=== PATIENT | male | born 2005 | race Caucasian/White ===

== ENCOUNTER → 2024-07-19 | Outpatient (CLI) | payer BC, SELFPAY ==
[2024-07-19 09:28] LABS: Collection Type, Urine Clean Catch; Squamous Epithelial Cell,Urine 0 /hpf (0-5)
[2024-07-19 09:55] LABS: Basophils # (Auto) 0.1 Thou/mm3 (0.0-0.2); Basophils % (Auto) 1 % (0-2.5); Eosinophils # (Auto) 0.3 Thou/mm3 (0.0-0.5); Eosinophils % (Auto) 3 % (0-10); Hematocrit 42.2 % (41.0-53.0); Hemoglobin 13.8 g/dL (13.5-16.0); Immature Granulocytes % (Auto) 1 % (0-0); Immature Granulocytes Auto 0.07 Thou/mm3 (0.00-0.00); Lymphocytes # (Auto) 3.1 Thou/mm3 (1.0-4.8); Lymphocytes % (Auto) 29 % (10-50); Mean Corpuscular HGB Conc 32.7 g/dl (31.0-37.0); Mean Corpuscular Hemoglobin 26.2 pg (25.0-35.0); Mean Corpuscular Volume 80 fL (80-100); Monocytes # (Auto) 1.1 Thou/mm3 (0.0-0.8); Monocytes % (Auto) 11 % (0-12); Neutrophils % (Auto) 56 % (37-80); Nucleated Red Blood Cell % 0 /100 WBC (0); Platelet Count 382 Thou/mm3 (140-440); RDW Standard Deviation 49.5 fL (35.1-43.9); Red Blood Count 5.26 Miln/mm3 (4.50-5.90); White Blood Count 10.6 Thou/mm3 (4.5-11.0)
[2024-07-19 10:05] LABS: Bacteria,Urine Rare; Bilirubin,Urine Negative (Negative); Blood,Urine Negative (Negative); Clarity,Urine Clear (Clear/Hazy); Color,Urine Lt-Yellow (Lt Yel-Yel); Culture Indicated,Urine Not Indicated; Glucose, Urine Negative (Negative); Ketones,Urine Negative (Negative); Leukocyte Esterase,Urine Negative (Negative); Nitrite,Urine Negative (Negative); Protein,Urine Negative (Neg - Trace); RBC,Urine 1 /hpf (0-3); Specific Gravity,Urine 1.011 (1.001-1.035); Urobilinogen,Urine Negative mg/dL (0.0-1.0); WBC,Urine 1 /hpf (0-5)
[2024-07-19 10:47] LABS: Alanine Aminotransferase 61 U/L (10-49); Albumin, Serum 4.5 gm/dL (3.5-5.0); Alkaline Phosphatase 62 U/L (46-116); Anion Gap 6 (7-16); Aspartate Amino Transferase 56 U/L (0-34); BUN/Creatinine Ratio 15 Ratio (12-20); Bilirubin,Total 0.4 mg/dL (0.3-1.2); Blood Urea Nitrogen 16 mg/dL (9-23); Calcium 9.7 mg/dL (8.3-10.6); Calcium (Corrected) 9.7 mg/dL (8.5-10.1); Carbon Dioxide 24.8 mMol/L (20.0-31.0); Cardiac Risk Estimate 14.7 RATIO (4.0-6.7); Chloride 106 mMol/L (98-107); Cholesterol 294 mg/dL (132-200); Creatinine (Component) 1.1 mg/dL (0.6-1.3); Globulin 2.2 gm/dL (2.3-3.5); Glucose 92 mg/dL (74-106); HDL Cholesterol 20 mg/dL (40-60); LDL Cholesterol,Calculated 253 mg/dL (0-130); Osmolality,Calculated 275 (275-295); Potassium 4.7 mMol/L (3.4-5.1); Sodium 137 mMol/L (136-145); Thyroid Stimulating Hormone 0.74 uIU/mL (0.55-4.78); Total Protein 6.7 gm/dL (5.7-8.2); Triglycerides 105 mg/dL (30-150); eGFR > 60 See Note
[2024-07-26 06:27] LABS: Testosterone,Total* 5870 ng/dL (250-1100)
== END | disposition home or self-care (01) ==
LOC: COPL 08:49
PROVIDERS: PCP Family Medicine; Referring Provider Nurse Practitioner Family; Visit Provider Nurse Practitioner Family
DX: Z00.00 Encounter for general adult medical examination without abnormal findings (principal); E29.1 Testicular hypofunction
CPT/HCPCS: 36415; 80053; 80061; 81001; 84403; 84443; 85025

== ENCOUNTER 2024-07-20 16:32 | Emergency (ER) | payer BC, SELFPAY ==
[2024-07-20 16:35] VITALS: BP 156/81; PULSE 76; RESP 16; TEMP 36.6; O2SAT 99; BMI 30.9
--- NOTE | 2024-07-20 17:29 | XR_ITS ---
Examination: PA lateral chest 2 views TECHNIQUE: Upright PA lateral chest 2 views Exam date and time: July 20, 2024 1734 hours INDICATIONS: Chest pain beginning one week ago. FINDINGS: Normal heart size Lungs are clear. The osseous structures are intact IMPRESSION: No active disease
--- NOTE | 2024-07-20 17:29 | PD.EDRME ---
Rapid Medical Screening Exam RME Arrival date/time: 07/20/24 16:32 18-year-old male presents to the emergency department complaint of chest pain which Chief Complaint: Chest Pain Time Seen by Provider: 07/20/24 17:11 Vital signs: Vital Signs Temperature 97.9 F 07/20/24 16:35 Pulse Rate 76 07/20/24 16:35 Respiratory Rate 16 07/20/24 16:35 Blood Pressure 156/81 H 07/20/24 16:35 Pulse Oximetry (%) 99 07/20/24 16:35 Oxygen Delivery Method Room Air 07/20/24 16:35
[2024-07-20 17:59] LABS: Basophils # (Auto) 0.1 Thou/mm3 (0.0-0.2); Basophils % (Auto) 1 % (0-2.5); Eosinophils # (Auto) 0.3 Thou/mm3 (0.0-0.5); Eosinophils % (Auto) 3 % (0-10); Hematocrit 42.9 % (41.0-53.0); Hemoglobin 13.8 g/dL (13.5-16.0); Immature Granulocytes % (Auto) 1 % (0-0); Immature Granulocytes Auto 0.09 Thou/mm3 (0.00-0.00); Lymphocytes # (Auto) 3.8 Thou/mm3 (1.0-4.8); Lymphocytes % (Auto) 28 % (10-50); Mean Corpuscular HGB Conc 32.2 g/dl (31.0-37.0); Mean Corpuscular Hemoglobin 25.9 pg (25.0-35.0); Mean Corpuscular Volume 81 fL (80-100); Monocytes # (Auto) 1.5 Thou/mm3 (0.0-0.8); Monocytes % (Auto) 11 % (0-12); Neutrophils # (Auto) 7.6 Thou/mm3 (1.8-7.7); Neutrophils % (Auto) 57 % (37-80); Nucleated Red Blood Cell % 0 /100 WBC (0); Platelet Count 373 Thou/mm3 (140-440); RDW Standard Deviation 50.3 fL (35.1-43.9); Red Blood Count 5.32 Miln/mm3 (4.50-5.90); White Blood Count 13.4 Thou/mm3 (4.5-11.0)
[2024-07-20 18:19] LABS: Alanine Aminotransferase 54 U/L (10-49); Albumin, Serum 4.6 gm/dL (3.5-5.0); Albumin/Globulin Ratio 1.8 (1.2-2.2); Alkaline Phosphatase 59 U/L (46-116); Anion Gap 5 (7-16); Aspartate Amino Transferase 50 U/L (0-34); BUN/Creatinine Ratio 16 Ratio (12-20); Bilirubin,Total 0.4 mg/dL (0.3-1.2); Blood Urea Nitrogen 19 mg/dL (9-23); Calcium 9.9 mg/dL (8.3-10.6); Calcium (Corrected) 9.9 mg/dL (8.5-10.1); Carbon Dioxide 27.4 mMol/L (20.0-31.0); Chloride 106 mMol/L (98-107); Creatinine (Component) 1.2 mg/dL (0.6-1.3); Estimated Creatinine Clearance 122.1 mL/min (>60); Globulin 2.5 gm/dL (2.3-3.5); Glucose 93 mg/dL (74-106); Osmolality,Calculated 277 (275-295); Potassium 4.1 mMol/L (3.4-5.1); Sodium 138 mMol/L (136-145); Total Protein 7.1 gm/dL (5.7-8.2); Troponin I < 0.020 ng/mL (0.0-0.045); eGFR > 60 See Note
[2024-07-20 20:07] LABS: Amphetamine/Methamp Scrn,U Negative (Negative); Barbiturate Screen,Urine Negative (Negative); Benzodiazepines Screen,Urine Negative (Negative); Benzoylecgonine Screen, Ur Negative (Negative); Fentanyl Screen,Urine Negative (Negative); Opiate Screen,Urine Negative (Negative); THC Screen,Urine Negative (Negative)
--- NOTE | 2024-07-20 20:44 | EDNOTE_ITS ---
ED General RME/HPI General Chief complaint: Chest Pain Stated complaint: CHEST PAIN X1 WK ON & OFF MORE TODAY W/L ARM PAIN Time Seen by Provider: 07/20/24 17:11 Arrival date/time: 07/20/24 16:32 CC: Chest pain HPI for the last week the patient has had left anterior chest pain that is been persistent nature progressive increase in severity worse when he takes a deep breath coughs or laughs denies any fever chills shortness of breath or difficulty breathing no prior history of similar events no OTC medicines taken currently the pain is a 2-3 on a 10 scale. RME / HPI RME / HPI narrative: 07/20/24 16:32 18-year-old male presents to the emergency department complaint of chest pain which Related Data Home Medications ?Medication ?Instructions ?Recorded ?Confirmed No Known Home Medications 12/31/19 12/31/19 Allergies Allergy/AdvReac Type Severity Reaction Status Date / Time No Known Allergies Allergy Verified 04/17/24 21:17 Review of Systems Review of Systems Narrative Review of Systems: GEN: No fever, no chills, no weight loss EYES: No discharge, no visual changes, no pain HEENT: No ear pain, no congestion, no sore throat PULM: No shortness of breath, no cough, no congestion CV: No chest pain, no dyspnea on exertion, no palpitations GI: No nausea, no vomiting, no diarrhea, no pain, no constipation : No frequency, no urgency, no dysuria MUSC/SKEL: No joint pain, no back pain SKIN: No rash PSYCH: No hallucinations, no depression HEME/LYMPH: No easy bleeding or bruising tendencies NEURO: No weakness, no headache Past Medical History Social History SMOKING STATUS: Current every day smoker ED Exam Narrative Physical exam: [General: Not in any acute distress Head normocephalic HEENT: Within acceptable limits Neck is supple nontender Chest equal chest rise, left anterior chest at the costal sternal junction there is exquisite tenderness to palpation reproducible site-specific in nature no right sided tenderness with palpation. Respiratory: Clear to auscultation no wheezes crackles or rubs CV: Rate rhythm is regular no murmurs rubs or clicks Abdomen is distended secondary to body habitus soft nontender no masses positive bowel sounds all 4 quadrants Back: No CVA tenderness no spinous process tenderness from cervical spine thoracic and lumbar spine Skin: Intact no petechiae rash induration ulceration or crepitus Extremities: Moving all extremity against resistance cap refill less than 2 seconds neurosensory intact Neuro: Awake alert oriented x3 Glascow coma 15 no focal deficits] Course Quality Measures none Orders Category Date Time Status EKG (ED ONLY) *Do not use* NOW Care 07/20/24 16:43 Completed EKG (ED Only) Stat Exams 07/20/24 16:43 Ordered XR chest 2V Stat Exams 07/20/24 17:29 Completed CBC Stat Lab 07/20/24 17:40 Completed Comprehensive Metabolic Panel Stat Lab 07/20/24 17:40 Completed Drug Screen,Urine Stat Lab 07/20/24 19:31 Completed Troponin I Stat Lab 07/20/24 17:40 Completed Vital Signs Vital signs: Vital Signs Temperature 97.9 F 07/20/24 16:35 Pulse Rate 76 07/20/24 16:35 Respiratory Rate 16 07/20/24 16:35 Blood Pressure 156/81 H 07/20/24 16:35 Pulse Oximetry (%) 99 07/20/24 16:35 Oxygen Delivery Method Room Air 07/20/24 16:35 MDM Patient data External records reviewed:: [facility] previous records Clinical information provided by:: patient Social determinants that could affect healthcare access:: none Patient has the following chronic illnesses:: None How is presenting disease/condition affected by chronic disease/condition?: u neffected by Evaluation data The following diagnostics were reviewed and interpreted by me:: lab results and radiology exam(s) Lab and/or radiology exams considered but not ordered:: EKG performed at 1651 shows ventricular before WI interval 110 QRS of 98 QTc of 373 is normal sinus rhythm Short WI interval 0 Troponin is negative Chest x-ray is negative Other laboratories is unremarkable for any acute finding. Interpretation Summary: Costochondritis Medications Medications considered but not ordered:: None Medication administrations:: None Consultations Consultation(s) initiated? (list below): No Diagnosis Differential Diagnosis ED Complaint MDM: Pneumonia costochondritis pleuritic chest wall pain Most likely diagnosis given after review of the tests above:: Costochondritis Admission Indicated Admission indicated?: not indicated Explain why admission is indicated or not indicated:: Stable for outpatient follow-up Admission Request Was there a request for admission?: No Disposition Plan Disposition Plan: Discharge Discharge Attestation Discharge Attestation: The patient and all family members were given an opportunity to ask questions and understood the discharge instructions. Discharge instructions specifically effects, indications for sooner follow up or return to the emergency department, and the expected course of current diagnosis. Patient condition: Stable Medical Decision Making Differential Diagnosis Differential Diagnosis: Pneumonia costochondritis pleuritic chest wall pain Lab Data 07/20/24 17:40 07/20/24 17:40 Labs: Lab Results 07/20/24 07/20/24 Range/Units 17:40 19:31 WBC 13.4 H (4.5-11.0) Thou/mm3 RBC 5.32 (4.50-5.90) Miln/mm3 Hgb 13.8 (13.5-16.0) g/dL Hct 42.9 (41.0-53.0) % MCV 81 (80-100) fL MCH 25.9 (25.0-35.0) pg MCHC 32.2 (31.0-37.0) g/dl RDW Std Deviation 50.3 H (35.1-43.9) fL Plt Count 373 (140-440) Thou/mm3 Neut % (Auto) 57 (37-80) % Lymph % (Auto) 28 (10-50) % Kay % (Auto) 11 (0-12) % Eos % (Auto) 3 (0-10) % Baso % (Auto) 1 (0-2.5) % Neut # (Auto) 7.6 (1.8-7.7) Thou/mm3 Lymph # (Auto) 3.8 (1.0-4.8) Thou/mm3 Kay # (Auto) 1.5 H (0.0-0.8) Thou/mm3 Eos # (Auto) 0.3 (0.0-0.5) Thou/mm3 Baso # (Auto) 0.1 (0.0-0.2) Thou/mm3 Immature Gran # (Auto) 0.09 H (0.00-0.00) Thou/mm3 Absolute Nucleated RBC 0.00 (0.00-0.00) Thou/mm3 Immature Gran % 1 H (0-0) % Nucleated RBC % 0 (0) /100 WBC Sodium 138 (136-145) mMol/L Potassium 4.1 D (3.4-5.1) mMol/L Chloride 106 (98-107) mMol/L Carbon Dioxide 27.4 (20.0-31.0) mMol/L Anion Gap 5 L (7-16) BUN 19 (9-23) mg/dL Creatinine 1.2 (0.6-1.3) mg/dL Estim Creat Clear Calc 122.1 (>60) mL/min eGFR > 60 (60 - ) See Note BUN/Creatinine Ratio 16 (12-20) Ratio Glucose 93 (74-106) mg/dL Calculated Osmolality 277 (275-295) Calcium 9.9 (8.3-10.6) mg/dL Corrected Calcium 9.9 (8.5-10.1) mg/dL Total Bilirubin 0.4 (0.3-1.2) mg/dL AST 50 H (0-34) U/L ALT 54 H (10-49) U/L Alkaline Phosphatase 59 (46-116) U/L Troponin I < 0.020 (0.0-0.045) ng/mL Total Protein 7.1 (5.7-8.2) gm/dL Albumin 4.6 (3.5-5.0) gm/dL Globulin 2.5 (2.3-3.5) gm/dL Albumin/Globulin Ratio 1.8 (1.2-2.2) Urine Opiates Screen Negative (Negative) Urine Fentanyl Screen Negative (Negative) Ur Barbiturates Screen Negative (Negative) U Amphetamin/Meth Scrn Negative (Negative) U Benzodiazepines Scrn Negative (Negative) U Cocaine Metab Screen Negative (Negative) U Marijuana (THC) Screen Negative (Negative) Discharge Plan Plan Patient Disposition: HOME (Self Care) Patient condition on transfer: Stable Prescriptions/Referrals Prescriptions/Med Rec: No Action No Known Home Medications Referrals: Tessie Tinajero NP [Primary Care Provider] - In 1 week Problem List Clinical Impression: Costochondritis Patient/Caregiver Discharge Instructions Other Activity Instructions:: Ibuprofen and Tylenol for pain follow-up with primary care provider Education Materials: Costochondritis Print Language: Mohawk Stand Alone Forms: [employer]ita Award Info., Work/School Release, Patient Portal Info Letter Attestation Attestation The patient was seen by the midlevel practitioner. I, the co-signing physician, was present during the entire ER visit. While I did not physically examine the patient, I was available for consultation as needed.
[2024-07-20 21:02] VITALS: BP 137/65; PULSE 78; RESP 18; TEMP 36.6; O2SAT 99
== END 2024-07-20 21:02 | disposition home or self-care (01) ==
PROVIDERS: Nurse Practitioner Primary Care; Emergency Provider Emergency Medicine; PCP Nurse Practitioner Family
DX: M94.0 Chondrocostal junction syndrome [Tietze] (principal); R94.31 Abnormal electrocardiogram [ECG] [EKG]
CPT/HCPCS: 36415; 71046; 80053; 80307; 84484; 85025; 93005; 99283

== ENCOUNTER 2024-11-14 15:46 | Emergency (ER) | payer BC, SELFPAY ==
[2024-11-14 15:48] VITALS: BMI 29.1
[2024-11-14 16:23] VITALS: BP 121/74; PULSE 82; RESP 18; TEMP 36.6; O2SAT 95
--- NOTE | 2024-11-14 16:35 | PD.EDRME ---
Rapid Medical Screening Exam E Arrival date/time: 11/14/24 15:46 19-year-old male with a history of depression was brought in by his dad after he was found with a loaded gun in his mouth preparing to pull the trigger Chief Complaint: Suicidal Time Seen by Provider: 11/14/24 15:54 Vital signs: Vital Signs Temperature 97.9 F 11/14/24 16:23 Pulse Rate 82 11/14/24 16:23 Respiratory Rate 18 11/14/24 16:23 Blood Pressure 121/74 11/14/24 16:23 Pulse Oximetry (%) 95 11/14/24 16:23 Oxygen Delivery Method Room Air 11/14/24 16:23
[2024-11-14 17:54] LABS: Alcohol, Blood Medical < 10.0 mg/dL (0-10.0)
[2024-11-14 17:56] LABS: Amphetamine/Methamp Scrn,U Negative (Negative); Barbiturate Screen,Urine Negative (Negative); Benzodiazepines Screen,Urine Negative (Negative); Benzoylecgonine Screen, Ur Negative (Negative); Fentanyl Screen,Urine Negative (Negative); Opiate Screen,Urine Negative (Negative); THC Screen,Urine Negative (Negative)
--- NOTE | 2024-11-14 19:05 | PC.NURSE ---
Took over care as 1:1 sitter for patient in conference room from day shift rafael cannon. New set of vitals obtained, patient taken to bathroom and placed in hospital gown. Patient is cooperative and follows commands accordingly. Items documented and patient placed in hospital gown. Items placed in locker #2. Security (Bina) to wand patient. Q15 observation/documentation initiated for my shift at this time.Father at bedside, Will cont. to stand by as 1:1 sitter. CN aware.
--- NOTE | 2024-11-14 19:15 | EDNOTE_ITS ---
ED Psych RME/HPI General Chief Complaint: Suicidal Stated Complaint: SI but no attempt today Time Seen by Provider: 11/14/24 15:54 Arrival date/time: 11/14/24 15:46 RME / HPI RME / HPI Narrative: 11/14/24 15:46 19-year-old male with a history of depression was brought in by his dad after he was found with a loaded gun in his mouth preparing to pull the trigger DR GARCIA MAIN ED EVALUATION: 19 yo male patient brought in by father for suicidal ideation. Per father patient was found with loaded gun. Related Data Home Medications ?Medication ?Instructions ?Recorded ?Confirmed No Known Home Medications 12/31/19 04/01/24 Allergies Allergy/AdvReac Type Severity Reaction Status Date / Time No Known Allergies Allergy Verified 04/17/24 21:17 Course Orders Category Date Time Status 1799 Psychiatric Hold NOW Care 11/14/24 18:30 Ordered Alcohol, Blood Medical Stat Lab 11/14/24 16:57 Completed Drug Screen,Urine Stat Lab 11/14/24 17:32 Completed Vital Signs Vital signs: Vital Signs Temperature 97.9 F 11/14/24 16:23 Pulse Rate 82 11/14/24 16:23 Respiratory Rate 18 11/14/24 16:23 Blood Pressure 121/74 11/14/24 16:23 Pulse Oximetry (%) 95 11/14/24 16:23 Oxygen Delivery Method Room Air 11/14/24 16:23 Discharge Plan Prescriptions/Referrals Prescriptions/Med Rec: No Action No Known Home Medications Patient/Caregiver Discharge Instructions Print Language: Citizen Of [place]
[2024-11-14 19:29] VITALS: BP 144/90; PULSE 82; RESP 18; TEMP 36.6; O2SAT 99
--- NOTE | 2024-11-14 22:22 | PC.NURSE ---
Patient was given a blanket, 2 pillows, and cup of coffee, all upon request. Patient is cooperative and behaves accordingly. Continuing to sit 1:1 with patient. Patient sleeping at this time.
--- NOTE | 2024-11-14 23:00 | PD.EDADDENDU ---
Emergency Room Addendum <Luzlowell Arnold - Last Filed: 11/15/24 05:27> Addendum Narrative: 2300: Care assumed from Dr. Erickson. Past medical, surgical, social and family history reviewed. Vitals and home medications reviewed. Results and treatment plan discussed. I will assume the care of the patient at this time and will follow the patient, pending 1799 hold. Please refer to the emergency department record for history and examination from initial visit. OBSERVATION NOTE: The patient was placed in ED observation care at 11/15/24 at 2300 hours. The patient was placed in ED observation care because of pending crisis evaluation. The patients past medical history, social history, and family history were reviewed. The plan of care will include serial examinations. Patient resting at this time. Patient has not needed any medications at this time. Patient is medically clear for crisis evaluation. 0600: Care signed out to the next oncoming provider. Past medical, surgical, social and family history reviewed. Vitals and home medications reviewed. Results and treatment plan discussed. They will assume the care of the patient at this time and will follow the patient, pending crisis evaluation. <Kasandra Mayer MD - Last Filed: 11/15/24 05:51> Addendum Narrative: 2300: Care assumed from Dr. Erickson. Past medical, surgical, social and family history reviewed. Vitals and home medications reviewed. Results and treatment plan discussed. I will assume the care of the patient at this time and will follow the patient, pending 1799 hold. Please refer to the emergency department record for history and examination from initial visit. Patient resting at this time. Patient has not needed any medications at this time.
--- NOTE | 2024-11-15 08:12 | PC.SS ---
Addendum entered by GONZALEZ Musa 11/15/24 13:07: Late entry: [employer] food production worker - Carissa Espinal informed content writer that patient would be cleared on safety plan with connection with psychiatrist appointment this week and connection to [facility] for mental health services follow up. Original Note: [employer] Operator contacted [employer] crisis team as the patient has been medically cleared for a mental health evaluation. [employer] informs they will send someone out to come evaluate the patient.
--- NOTE | 2024-11-15 08:14 | PC.NURSE ---
father here to see patient
--- NOTE | 2024-11-15 08:17 | PD.EDADDENDU ---
Emergency Room Addendum <Yaquelin Trinidad - Last Filed: 11/15/24 11:45> Addendum Narrative: 0600: Care assumed from Dr. Mayer, the previous shift emergency physician. Past medical, surgical, social and family history reviewed. Vitals and home medications reviewed. I will assume the care of the patient at this time, pending mental health evaluation. Please refer to the emergency department record for history and examination from initial visit.? Patient 19-year-old who is suicidal evidently had a loaded gun. There can have T come and evaluate this patient <Lane Cottrell MD - Last Filed: 11/15/24 11:45> Addendum Narrative: 0600: Care assumed from Dr. Mayer, the previous shift emergency physician. Past medical, surgical, social and family history reviewed. Vitals and home medications reviewed. I will assume the care of the patient at this time, pending mental health evaluation. Please refer to the emergency department record for history and examination from initial visit.? Patient 19-year-old who is suicidal evidently had a loaded gun. There can have Egdar come and evaluate this patient Patient has history of bipolar and have a safety plan and patient is cleared to go home there advised to follow-up with mental health as advised patient's been calm and no problems this morning..
[2024-11-15 09:03] VITALS: BP 135/76; PULSE 70; TEMP 36.5; O2SAT 99
--- NOTE | 2024-11-15 10:24 | PC.NURSE ---
PT AAOX4 HE WAS ABLE TO ANSWER QUESTIONS, HE STATES THAT HE IS STILL HAVING THOUGHTS OF SI WHEN HIS HER AND A SPECIFIC WAY BUT DID NOT SAY HOW. HE SAID THAT HE HAS HAD TWO ATTEMPTS ONE PRIOR WITH ALCOHOL AND THIS TIME WITH THOUGHTS OF SHOOTING HE WAS CLOSE BUT MY DISRUPTED HIM. HE STATES HIS FEEL THAT HIS FEELINGS ARE ALL OVER THE PLACE UP AND DOWN FROM ANGER TO SAD. HE STATES THAT HE HAS HISTORY OF BIPOLAR AND THAT HIS BIOLOGICAL MOTHER HAD BIPOLAR, HE WAS ADOPTED AND DOES NOT KNOW MUCH ABOUT BIOLOGICAL SIDE. HE DID STATE THAT WHEN HE TRIED TO OVERDOSE PRIOR WITH ALCOHOL HIS FATHER TOLD HIM YOUR YOUNG YOUR LIVER WILL METABOLIZE IT.
[2024-11-15 11:00] VITALS: BP 136/78; PULSE 72; RESP 16; TEMP 36.5; O2SAT 100
== END 2024-11-15 12:23 | disposition home or self-care (01) ==
PROVIDERS: Physician Assistant; Emergency Provider Emergency Medicine
DX: R45.851 Suicidal ideations (principal); F31.9 Bipolar disorder, unspecified
CPT/HCPCS: 36415; 80307; 80320; 96127; 99284; G0480

== ENCOUNTER → 2025-02-17 | Outpatient (CLI) | payer BC, SELFPAY ==
[2025-02-17 11:31] LABS: Basophils # (Auto) 0.1 Thou/mm3 (0.0-0.2); Basophils % (Auto) 1 % (0-2.5); Eosinophils # (Auto) 0.2 Thou/mm3 (0.0-0.5); Eosinophils % (Auto) 2 % (0-10); Hematocrit 45.9 % (41.0-53.0); Hemoglobin 15.9 g/dL (13.5-16.0); Immature Granulocytes % (Auto) 1 % (0-0); Immature Granulocytes Auto 0.05 Thou/mm3 (0.00-0.00); Lymphocytes % (Auto) 20 % (10-50); Mean Corpuscular HGB Conc 34.6 g/dl (31.0-37.0); Mean Corpuscular Hemoglobin 28.3 pg (25.0-35.0); Mean Corpuscular Volume 82 fL (80-100); Monocytes # (Auto) 1.1 Thou/mm3 (0.0-0.8); Monocytes % (Auto) 10 % (0-12); Neutrophils % (Auto) 67 % (37-80); Nucleated Red Blood Cell % 0 /100 WBC (0); Platelet Count 398 Thou/mm3 (140-440); RDW Standard Deviation 43.6 fL (35.1-43.9); Red Blood Count 5.62 Miln/mm3 (4.50-5.90); White Blood Count 10.4 Thou/mm3 (3.8-10.6)
[2025-02-17 11:57] LABS: Alanine Aminotransferase 38 U/L (10-49); Albumin, Serum 4.5 gm/dL (3.5-5.0); Alkaline Phosphatase 69 U/L (46-116); Anion Gap 9 (7-16); Aspartate Amino Transferase 41 U/L (0-34); BUN/Creatinine Ratio 14 Ratio (12-20); Bilirubin,Total 0.3 mg/dL (0.3-1.2); Blood Urea Nitrogen 17 mg/dL (9-23); Calcium 9.3 mg/dL (8.3-10.6); Calcium (Corrected) 9.3 mg/dL (8.5-10.1); Carbon Dioxide 24.7 mMol/L (20.0-31.0); Cardiac Risk Estimate 13.8 RATIO (4.0-6.7); Chloride 106 mMol/L (98-107); Cholesterol 234 mg/dL (132-200); Creatinine (Component) 1.2 mg/dL (0.6-1.3); Globulin 2.2 gm/dL (2.3-3.5); Glucose 95 mg/dL (74-106); HDL Cholesterol 17 mg/dL (40-60); LDL Cholesterol,Calculated 193 mg/dL (0-130); Osmolality,Calculated 280 (275-295); Potassium 4.5 mMol/L (3.4-5.1); Sodium 140 mMol/L (136-145); Total Protein 6.7 gm/dL (5.7-8.2); Triglycerides 122 mg/dL (30-150); eGFR > 60 See Note
== END | disposition home or self-care (01) ==
LOC: COPL 10:46
PROVIDERS: PCP Family Medicine; Referring Provider Physician Assistant; Visit Provider Physician Assistant
DX: L70.0 Acne vulgaris (principal)
CPT/HCPCS: 36415; 80053; 80061; 85025

== ENCOUNTER → 2025-02-23 | Outpatient (CLI) | payer BC, SELFPAY ==
[2025-02-23 10:38] LABS: Basophils # (Auto) 0.1 Thou/mm3 (0.0-0.2); Basophils % (Auto) 1 % (0-2.5); Eosinophils # (Auto) 0.2 Thou/mm3 (0.0-0.5); Eosinophils % (Auto) 2 % (0-10); Hematocrit 45.4 % (41.0-53.0); Hemoglobin 15.3 g/dL (13.5-16.0); Immature Granulocytes % (Auto) 1 % (0-0); Immature Granulocytes Auto 0.05 Thou/mm3 (0.00-0.00); Lymphocytes # (Auto) 2.3 Thou/mm3 (1.0-4.8); Lymphocytes % (Auto) 22 % (10-50); Mean Corpuscular HGB Conc 33.7 g/dl (31.0-37.0); Mean Corpuscular Volume 83 fL (80-100); Monocytes % (Auto) 10 % (0-12); Neutrophils # (Auto) 6.9 Thou/mm3 (1.8-7.7); Neutrophils % (Auto) 66 % (37-80); Nucleated Red Blood Cell % 0 /100 WBC (0); Platelet Count 394 Thou/mm3 (140-440); RDW Standard Deviation 43.8 fL (35.1-43.9); Red Blood Count 5.46 Miln/mm3 (4.50-5.90); White Blood Count 10.5 Thou/mm3 (3.8-10.6)
[2025-02-23 10:42] LABS: Collection Type, Urine Clean Catch; Squamous Epithelial Cell,Urine 0 /hpf (0-5); WBC,Urine 0 /hpf (0-5)
[2025-02-23 10:50] LABS: Glucose Estimated Average 97 mg/dL (80-131)
[2025-02-23 11:47] LABS: Bilirubin,Urine Negative (Negative); Blood,Urine Negative (Negative); Clarity,Urine Clear (Clear/Hazy); Color,Urine Lt-Yellow (Lt Yel-Yel); Culture Indicated,Urine Not Indicated; Glucose, Urine Negative (Negative); Ketones,Urine Negative (Negative); Leukocyte Esterase,Urine Negative (Negative); Nitrite,Urine Negative (Negative); Protein,Urine Trace (Neg - Trace); RBC,Urine 3 /hpf (0-3); Specific Gravity,Urine 1.014 (1.001-1.035); Urobilinogen,Urine Negative mg/dL (0.0-1.0)
[2025-02-23 12:02] LABS: Alanine Aminotransferase 39 U/L (10-49); Albumin, Serum 4.7 gm/dL (3.5-5.0); Albumin/Globulin Ratio 2.5 (1.2-2.2); Alkaline Phosphatase 65 U/L (46-116); Anion Gap 9 (7-16); Aspartate Amino Transferase 49 U/L (0-34); BUN/Creatinine Ratio 10 Ratio (12-20); Bilirubin,Total 0.6 mg/dL (0.3-1.2); Blood Urea Nitrogen 12 mg/dL (9-23); Calcium 9.9 mg/dL (8.3-10.6); Calcium (Corrected) 9.9 mg/dL (8.5-10.1); Carbon Dioxide 24.8 mMol/L (20.0-31.0); Cardiac Risk Estimate 12.3 RATIO (4.0-6.7); Chloride 102 mMol/L (98-107); Cholesterol 221 mg/dL (132-200); Creatinine (Component) 1.2 mg/dL (0.6-1.3); Globulin 1.9 gm/dL (2.3-3.5); Glucose 88 mg/dL (74-106); HDL Cholesterol 18 mg/dL (40-60); LDL Cholesterol,Calculated 183 mg/dL (0-130); Osmolality,Calculated 270 (275-295); Potassium 4.8 mMol/L (3.4-5.1); Sodium 136 mMol/L (136-145); Thyroid Stimulating Hormone 0.84 uIU/mL (0.55-4.78); Total Protein 6.6 gm/dL (5.7-8.2); Triglycerides 102 mg/dL (30-150); eGFR > 60 See Note
[2025-03-06 06:45] LABS: Estrogen, Total, Serum* 514 pg/mL (< OR = 404); Testosterone, Total, Dialysis 1880 ng/dL (250-1100)
== END | disposition home or self-care (01) ==
LOC: COPL 09:53
PROVIDERS: PCP Family Medicine; Referring Provider Physician Assistant; Visit Provider Physician Assistant
DX: E78.2 Mixed hyperlipidemia (principal)
CPT/HCPCS: 36415; 80053; 80061; 81001; 82672; 83036; 84402; 84403; 84443; 85025

== ENCOUNTER → 2025-03-29 | Outpatient (CLI) | payer BC, SELFPAY ==
[2025-03-29 09:32] LABS: Basophils # (Auto) 0.1 Thou/mm3 (0.0-0.2); Basophils % (Auto) 1 % (0-2.5); Eosinophils # (Auto) 0.2 Thou/mm3 (0.0-0.5); Eosinophils % (Auto) 2 % (0-10); Hematocrit 46.1 % (41.0-53.0); Hemoglobin 15.4 g/dL (13.5-16.0); Immature Granulocytes Auto 0.07 Thou/mm3 (0.00-0.00); Lymphocytes # (Auto) 2.5 Thou/mm3 (1.0-4.8); Lymphocytes % (Auto) 22 % (10-50); Mean Corpuscular HGB Conc 33.4 g/dl (31.0-37.0); Mean Corpuscular Hemoglobin 28.1 pg (25.0-35.0); Mean Corpuscular Volume 84 fL (80-100); Monocytes # (Auto) 1.1 Thou/mm3 (0.0-0.8); Monocytes % (Auto) 10 % (0-12); Neutrophils # (Auto) 7.6 Thou/mm3 (1.8-7.7); Neutrophils % (Auto) 66 % (37-80); Nucleated Red Blood Cell # 0.00 Thou/mm3 (0.00-0.00); Nucleated Red Blood Cell % 0 /100 WBC (0); Platelet Count 409 Thou/mm3 (140-440); RDW Standard Deviation 45.8 fL (35.1-43.9); Red Blood Count 5.49 Miln/mm3 (4.50-5.90); White Blood Count 11.5 Thou/mm3 (3.8-10.6)
[2025-03-29 09:58] LABS: Alanine Aminotransferase 40 U/L (10-49); Albumin, Serum 4.7 gm/dL (3.5-5.0); Albumin/Globulin Ratio 1.9 (1.2-2.2); Alkaline Phosphatase 55 U/L (46-116); Anion Gap 10 (7-16); Aspartate Amino Transferase 55 U/L (0-34); BUN/Creatinine Ratio 9 Ratio (12-20); Bilirubin,Total 0.6 mg/dL (0.3-1.2); Blood Urea Nitrogen 12 mg/dL (9-23); Calcium 9.4 mg/dL (8.3-10.6); Calcium (Corrected) 9.4 mg/dL (8.5-10.1); Carbon Dioxide 24.2 mMol/L (20.0-31.0); Cardiac Risk Estimate 12.8 RATIO (4.0-6.7); Chloride 104 mMol/L (98-107); Cholesterol 255 mg/dL (132-200); Creatinine (Component) 1.3 mg/dL (0.6-1.3); Globulin 2.5 gm/dL (2.3-3.5); Glucose 90 mg/dL (74-106); HDL Cholesterol 20 mg/dL (40-60); LDL Cholesterol,Calculated 217 mg/dL (0-130); Osmolality,Calculated 275 (275-295); Potassium 4.7 mMol/L (3.4-5.1); Sodium 138 mMol/L (136-145); Total Protein 7.2 gm/dL (5.7-8.2); Triglycerides 90 mg/dL (30-150); eGFR > 60 See Note
== END | disposition home or self-care (01) ==
LOC: COPL 08:12
PROVIDERS: PCP Family Medicine; Referring Provider Physician Assistant; Visit Provider Physician Assistant
DX: L70.0 Acne vulgaris (principal)
CPT/HCPCS: 36415; 80053; 80061; 85025

== ENCOUNTER → 2025-05-01 | Outpatient (CLI) | payer BC, SELFPAY ==
[2025-05-01 10:37] LABS: Basophils # (Auto) 0.1 Thou/mm3 (0.0-0.2); Basophils % (Auto) 0 % (0-2.5); Eosinophils # (Auto) 0.1 Thou/mm3 (0.0-0.5); Eosinophils % (Auto) 1 % (0-10); Hematocrit 46.8 % (41.0-53.0); Hemoglobin 15.6 g/dL (13.5-16.0); Immature Granulocytes Auto 0.10 Thou/mm3 (0.00-0.00); Lymphocytes # (Auto) 2.8 Thou/mm3 (1.0-4.8); Lymphocytes % (Auto) 20 % (10-50); Mean Corpuscular HGB Conc 33.3 g/dl (31.0-37.0); Mean Corpuscular Hemoglobin 27.9 pg (25.0-35.0); Mean Corpuscular Volume 84 fL (80-100); Monocytes # (Auto) 1.4 Thou/mm3 (0.0-0.8); Monocytes % (Auto) 10 % (0-12); Neutrophils # (Auto) 9.3 Thou/mm3 (1.8-7.7); Neutrophils % (Auto) 68 % (37-80); Nucleated Red Blood Cell # 0.00 Thou/mm3 (0.00-0.00); Nucleated Red Blood Cell % 0 /100 WBC (0); Platelet Count 331 Thou/mm3 (140-440); RDW Standard Deviation 48.7 fL (35.1-43.9); Red Blood Count 5.59 Miln/mm3 (4.50-5.90); White Blood Count 13.8 Thou/mm3 (3.8-10.6)
[2025-05-01 11:11] LABS: Alanine Aminotransferase 54 U/L (10-49); Albumin, Serum 4.1 gm/dL (3.5-5.0); Albumin/Globulin Ratio 2.3 (1.2-2.2); Alkaline Phosphatase 53 U/L (46-116); Anion Gap 12 (7-16); Aspartate Amino Transferase 43 U/L (0-34); BUN/Creatinine Ratio 15 Ratio (12-20); Bilirubin,Total 0.5 mg/dL (0.3-1.2); Blood Urea Nitrogen 18 mg/dL (9-23); Calcium 10.1 mg/dL (8.3-10.6); Calcium (Corrected) 10.1 mg/dL (8.5-10.1); Carbon Dioxide 23.3 mMol/L (20.0-31.0); Cardiac Risk Estimate 9.6 RATIO (4.0-6.7); Chloride 106 mMol/L (98-107); Cholesterol 191 mg/dL (132-200); Creatinine (Component) 1.2 mg/dL (0.6-1.3); Globulin 1.8 gm/dL (2.3-3.5); Glucose 94 mg/dL (74-106); HDL Cholesterol 20 mg/dL (40-60); LDL Cholesterol,Calculated 154 mg/dL (0-130); Osmolality,Calculated 283 (275-295); Potassium 4.4 mMol/L (3.4-5.1); Sodium 141 mMol/L (136-145); Total Protein 5.9 gm/dL (5.7-8.2); Triglycerides 83 mg/dL (30-150); eGFR > 60 See Note
== END | disposition home or self-care (01) ==
PROVIDERS: Referring Provider Physician Assistant; Visit Provider Physician Assistant
DX: L70.0 Acne vulgaris (principal)
CPT/HCPCS: 36415; 80053; 80061; 85025

== ENCOUNTER 2025-05-05 09:38 | Emergency (ER) | payer BC, SELFPAY ==
[2025-05-05 09:39] VITALS: BMI 29.7
--- NOTE | 2025-05-05 10:00 | PD.EDPSYCH ---
ED Psych RME/HPI General Chief Complaint: Psychiatric Symptoms Stated Complaint: SUICIDAL Time Seen by Provider: 05/05/25 09:44 Arrival date/time: 05/05/25 09:38 Limitations: no limitations RME / HPI RME / HPI Narrative: Patient is a 19-year-old male who 3 days ago suffered the break-up of his long-term relationship. He has been very depressed. He states that he is suicidal and wants to hurt himself. He has a history of suicide attempt and has tried to kill himself in the past. He states that he would use a gun but he does not have access to one at this time. Patient's foster mother is here with the patient is very concerned about him. Patient has also been using testosterone and anabolic steroids over the past many months. He was using higher doses and experienced steroid rage and other side effects but is on testosterone 150 mg a week and anabolic steroids. Patient does have a therapist and a psychiatrist who has been made aware of the situation by the foster mother. Patient has used risperidone in the past with good effect. He does not have a history of bipolar disorder. He does have a family history of bipolar disorder and perhaps schizophrenia of his mother. MD complaint: suicidal ideation and feels depressed Onset (ago): day(s) Duration: constant History of same: Yes Relieving factors: none Exacerbating factors: other (Situational depression due to the break-up with his girlfriend) Associated psychiatric symptoms: depression and suicidal ideation Associated symptoms: denies other symptoms Treatments prior to arrival: none If self harm: admits thoughts of self harm and has plan Related Data Home Medications ?Medication ?Instructions ?Recorded ?Confirmed No Known Home Medications 12/31/19 12/31/19 Allergies Allergy/AdvReac Type Severity Reaction Status Date / Time No Known Allergies Allergy Verified 05/05/25 09:40 Review of Systems Review of Systems Systems Reviewed: All systems reviewed, normal except as documented Past Medical History Past Medical History CARDIAC: Negative Congestive Heart Failure RESPIRATORY: Negative Chronic Obstructive Pulmonary Disease (COPD) GENITOURINARY: Negative Renal Disease ENDOCRINE: Negative Diabetes Mellitus Type 1 or Diabetes Mellitus Type 2 PSYCHO/SOCIAL: Positive Bipolar Disorder, Depression and Anxiety Social History SMOKING STATUS: Current every day smoker ED Exam General Limitations: Present no limitations General appearance: Present alert and in no apparent distress Head Head exam: Present atraumatic Eye Eye exam: Present normal appearance, PERRL and EOMI ENT ENT exam: Present normal exam, normal oropharynx and mucous membranes moist Neck Neck exam: Present normal inspection, full ROM and trachea midline Chest Chest inspection: Present normal inspection and symmetric chest wall rise Respiratory Respiratory exam: Present normal lung sounds bilaterally Cardiovascular Cardiovascular exam: Present regular rate, normal rhythm and normal heart sounds Abdominal Exam Abdominal exam: Present soft and normal bowel sounds Extremities Exam Extremities exam: Present normal inspection and full ROM Back Exam Back exam: Present normal inspection and full ROM Neurological Exam Neurological exam: Present alert, oriented X3 and CN II-XII intact Psychiatric Psychiatric exam: Present depressed, flat affect and suicidal ideation Skin Skin exam: Present warm, dry, intact and normal color Course Quality Measures none Orders Category Date Time Status Diet Regular Diet 05/05/25 Lunch Active Acetaminophen Stat Lab 05/05/25 10:24 Completed Alcohol, Blood Medical Stat Lab 05/05/25 10:24 Completed CBC Stat Lab 05/05/25 10:24 Completed CMP [Comprehensive Metabolic Panel] Stat Lab 05/05/25 10:24 Completed Drug Screen,Urine Stat Lab 05/05/25 10:37 Completed Salicylate Stat Lab 05/05/25 10:24 Completed ALPRazoLAM [Xanax] Med 05/05/25 09:54 Discontinued 0.5 mg PO X1 ONE risperiDONE [RisperDAL] Med 05/05/25 09:54 Discontinued 1 mg PO X1 ONE Vital Signs Vital signs: Vital Signs Temperature 98.3 F 05/05/25 10:09 Pulse Rate 82 05/05/25 10:09 Respiratory Rate 18 05/05/25 10:09 Blood Pressure 129/77 05/05/25 10:09 Pulse Oximetry (%) 97 05/05/25 10:09 Oxygen Delivery Method Room Air 05/05/25 10:09 Pulse ox is 97% on room air which is adequate. Psych MDM Narrative MDM Narrative:: 19-year-old male with a history of depression and a history of suicide attempt with a 3-day history of acute situational depression secondary to a break-up with his girlfriend and thoughts of wanting to kill himself. Patient has been accepted for transfer by Dr. Conrad at [facility]. Patient data External records reviewed:: [facility] previous records Clinical information provided by:: patient Social determinants that could affect healthcare access:: mental health Patient has the following chronic illnesses:: Hx Depression How is presenting disease/condition affected by chronic disease/condition?: exacerbated by Evaluation data The following diagnostics were reviewed and interpreted by me:: lab results Lab and/or radiology exams considered but not ordered:: None Interpretation Summary: CBC and CMP within normal limits Medications / Prescriptions Medications or Prescriptions considered but not ordered:: Haldol Medication administrations:: Medication Administration History Discontinued Medications Alprazolam (Alprazolam 0.25 Mg Tablet) 0.5 mg PO X1 ONE Stop: 05/05/25 09:55 Last Admin: 05/05/25 10:07 Dose: 0.5 mg Documented By: VG Risperidone (Risperidone 1 Mg Tablet) 1 mg PO X1 ONE Stop: 05/05/25 09:55 Last Admin: 05/05/25 10:24 Dose: 1 mg Documented By: EF See above Consultations Consultation(s) initiated? (list below): Yes Consultation #1 (Physician, Specialty, Details): socially responsible investment adviser Diagnosis Psych Differential Diagnosis: suicidal ideation and depression Most likely diagnosis given after review of the tests above:: Suicidal ideation Depression Admission Indicated Admission indicated?: not indicated Explain why admission is indicated or not indicated:: txfer to psych facility Admission Request Was there a request for admission?: No Disposition Plan Disposition Plan: Transfer Critical Care Time Critical Care Time Critical Care Time: No Discharge Plan Plan Patient Disposition: [facility] Facility Discharge Disposition comment: Nazario Smith Prescriptions/Referrals Prescriptions/Med Rec: No Action No Known Home Medications Referrals: No Primary/Family,Physician [Primary Care Provider] - In 1 week Problem List Clinical Impression: Suicidal ideation, Depression Patient/Caregiver Discharge Instructions Print Language: [place] Stand Alone Forms: Nakita Award Info., Work/School Release, Patient Portal Info Letter
[2025-05-05 10:09] VITALS: BP 129/77; PULSE 82; RESP 18; TEMP 36.8; O2SAT 97
--- NOTE | 2025-05-05 10:17 | PC.CC ---
1017-Per ER providers assessment, Patient is a 19-year-old male who 3 days ago suffered the break-up of his long-term relationship. He has been very depressed. He states that he is suicidal and wants to hurt himself. He has a history of suicide attempt and has tried to kill himself in the past. He states that he would use a gun but he does not have access to one at this time. Patient has also been using testosterone and anabolic steroids over the past many months. He was using higher doses and experienced steroid rage and other side effects but is on testosterone 150 mg a week and anabolic steroids. Patient does have a therapist and a psychiatrist who has been made aware of the situation by the foster mother. Patient has used risperidone in the past with good effect. He does not have a history of bipolar disorder. He does have a family history of bipolar disorder and perhaps schizophrenia of his mother. ASW will assess pt upon medical clearance.
[2025-05-05 10:40] LABS: Basophils # (Auto) 0.1 Thou/mm3 (0.0-0.2); Basophils % (Auto) 0 % (0-2.5); Eosinophils # (Auto) 0.2 Thou/mm3 (0.0-0.5); Eosinophils % (Auto) 1 % (0-10); Hematocrit 46.6 % (41.0-53.0); Hemoglobin 15.4 g/dL (13.5-16.0); Immature Granulocytes Auto 0.07 Thou/mm3 (0.00-0.00); Lymphocytes # (Auto) 2.3 Thou/mm3 (1.0-4.8); Lymphocytes % (Auto) 17 % (10-50); Mean Corpuscular HGB Conc 33.0 g/dl (31.0-37.0); Mean Corpuscular Hemoglobin 28.4 pg (25.0-35.0); Mean Corpuscular Volume 86 fL (80-100); Monocytes # (Auto) 1.3 Thou/mm3 (0.0-0.8); Monocytes % (Auto) 10 % (0-12); Neutrophils # (Auto) 9.8 Thou/mm3 (1.8-7.7); Neutrophils % (Auto) 72 % (37-80); Nucleated Red Blood Cell # 0.00 Thou/mm3 (0.00-0.00); Nucleated Red Blood Cell % 0 /100 WBC (0); Platelet Count 326 Thou/mm3 (140-440); RDW Standard Deviation 50.4 fL (35.1-43.9); Red Blood Count 5.43 Miln/mm3 (4.50-5.90); White Blood Count 13.7 Thou/mm3 (3.8-10.6)
[2025-05-05 11:02] LABS: Amphetamine/Methamp Scrn,U Negative (Negative); Barbiturate Screen,Urine Negative (Negative); Benzodiazepines Screen,Urine Negative (Negative); Benzoylecgonine Screen, Ur Negative (Negative); Fentanyl Screen,Urine Negative (Negative); Opiate Screen,Urine Negative (Negative); THC Screen,Urine Negative (Negative)
[2025-05-05 11:08] LABS: Acetaminophen < 2.0 mcg/mL (10.0-20.0); Alanine Aminotransferase 50 U/L (10-49); Albumin, Serum 3.9 gm/dL (3.5-5.0); Albumin/Globulin Ratio 1.8 (1.2-2.2); Alcohol, Blood Medical < 3.0 mg/dL (0-10.0); Alkaline Phosphatase 64 U/L (46-116); Anion Gap 7 (7-16); Aspartate Amino Transferase 42 U/L (0-34); BUN/Creatinine Ratio 8 Ratio (12-20); Bilirubin,Total 0.4 mg/dL (0.3-1.2); Blood Urea Nitrogen 10 mg/dL (9-23); Calcium 9.2 mg/dL (8.3-10.6); Calcium (Corrected) 9.3 mg/dL (8.5-10.1); Carbon Dioxide 27.4 mMol/L (20.0-31.0); Chloride 108 mMol/L (98-107); Creatinine (Component) 1.2 mg/dL (0.6-1.3); Estimated Creatinine Clearance 122.3 mL/min (>60); Globulin 2.2 gm/dL (2.3-3.5); Glucose 89 mg/dL (74-106); Osmolality,Calculated 281 (275-295); Potassium 4.6 mMol/L (3.4-5.1); Salicylate < 3.0 mg/dL; Sodium 142 mMol/L (136-145); Total Protein 6.1 gm/dL (5.7-8.2); eGFR > 60 See Note
[2025-05-05 11:59] VITALS: BP 126/73; PULSE 79; RESP 17; TEMP 36.6; O2SAT 97
--- NOTE | 2025-05-05 12:09 | PC.NURSE ---
PT PROVIDED WITH LUNCH MEAL TRAY AT THIS TIME. PT SLEEPING WITH FOSTER MOTHER AT BEDSIDE.
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
--- NOTE | 2025-05-05 14:45 | PC.NURSE ---
ems here to transfer pt.
--- NOTE | 2025-05-05 14:50 | PC.NURSE ---
facility called and notified pt is en route.
== END 2025-05-05 14:45 ==
PROVIDERS: Emergency Provider Family Medicine
DX: Z00.8 Encounter for other general examination (principal); R45.851 Suicidal ideations; F32.A Depression, unspecified; F41.9 Anxiety disorder, unspecified; F43.21 Adjustment disorder with depressed mood; Z91.51 Personal history of suicidal behavior; Z75.1 Person awaiting admission to adequate facility elsewhere
CPT/HCPCS: 36415; 80053; 80307; 80320; 80329; 85025; 96127; 99283; A9270; G0480

== ENCOUNTER → 2025-06-22 | Outpatient (CLI) | payer BC, SELFPAY ==
[2025-06-22 11:21] LABS: Basophils # (Auto) 0.1 Thou/mm3 (0.0-0.2); Basophils % (Auto) 0 % (0-2.5); Eosinophils # (Auto) 0.1 Thou/mm3 (0.0-0.5); Eosinophils % (Auto) 1 % (0-10); Hematocrit 46.7 % (41.0-53.0); Hemoglobin 15.8 g/dL (13.5-16.0); Immature Granulocytes Auto 0.08 Thou/mm3 (0.00-0.00); Lymphocytes # (Auto) 3.4 Thou/mm3 (1.0-4.8); Lymphocytes % (Auto) 29 % (10-50); Mean Corpuscular HGB Conc 33.8 g/dl (31.0-37.0); Mean Corpuscular Hemoglobin 28.2 pg (25.0-35.0); Mean Corpuscular Volume 83 fL (80-100); Monocytes # (Auto) 1.6 Thou/mm3 (0.0-0.8); Monocytes % (Auto) 14 % (0-12); Neutrophils # (Auto) 6.5 Thou/mm3 (1.8-7.7); Neutrophils % (Auto) 55 % (37-80); Nucleated Red Blood Cell # 0.00 Thou/mm3 (0.00-0.00); Nucleated Red Blood Cell % 0 /100 WBC (0); Platelet Count 352 Thou/mm3 (140-440); RDW Standard Deviation 47.5 fL (35.1-43.9); Red Blood Count 5.61 Miln/mm3 (4.50-5.90); White Blood Count 11.8 Thou/mm3 (3.8-10.6)
[2025-06-22 11:41] LABS: Alanine Aminotransferase 41 U/L (10-49); Albumin, Serum 4.1 gm/dL (3.5-5.0); Albumin/Globulin Ratio 2.1 (1.2-2.2); Alkaline Phosphatase 67 U/L (46-116); Anion Gap 9 (7-16); Aspartate Amino Transferase 63 U/L (0-34); BUN/Creatinine Ratio 7 Ratio (12-20); Bilirubin,Total 0.5 mg/dL (0.3-1.2); Blood Urea Nitrogen 8 mg/dL (9-23); Calcium 9.4 mg/dL (8.3-10.6); Calcium (Corrected) 9.4 mg/dL (8.5-10.1); Carbon Dioxide 26.0 mMol/L (20.0-31.0); Cardiac Risk Estimate 27.9 RATIO (4.0-6.7); Chloride 105 mMol/L (98-107); Cholesterol 279 mg/dL (132-200); Creatinine (Component) 1.1 mg/dL (0.6-1.3); Globulin 2.0 gm/dL (2.3-3.5); Glucose 96 mg/dL (74-106); HDL Cholesterol 10 mg/dL (40-60); LDL Cholesterol,Calculated 246 mg/dL (0-130); Osmolality,Calculated 277 (275-295); Potassium 4.7 mMol/L (3.4-5.1); Sodium 140 mMol/L (136-145); Total Protein 6.1 gm/dL (5.7-8.2); Triglycerides 115 mg/dL (30-150); eGFR > 60 See Note
== END | disposition home or self-care (01) ==
PROVIDERS: PCP Physician Assistant; Referring Provider Physician Assistant; Visit Provider Physician Assistant
DX: L70.0 Acne vulgaris (principal)
CPT/HCPCS: 36415; 80053; 80061; 85025

== ENCOUNTER 2025-06-28 22:04 | Emergency (ER) | payer BC, SELFPAY ==
[2025-06-28 22:06] VITALS: BMI 32.3
--- NOTE | 2025-06-28 22:15 | EKG_ITS ---
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
[2025-06-28 22:29] VITALS: BP 138/78; PULSE 82; RESP 20; TEMP 36.7; O2SAT 98
--- NOTE | 2025-06-28 22:59 | XR_ITS ---
EXAMINATION: PA lateral chest 2 views TECHNIQUE: 1. Upright PA lateral chest 2 views Date and time: June 28, 2025, 11:00 p.m. INDICATIONS: Chest pain radiating to the arm and back beginning 3 days ago. FINDINGS: Normal heart size Lungs are clear. The osseous structures are intact. IMPRESSION: No active disease
--- NOTE | 2025-06-28 23:00 | PD.EDRME ---
Rapid Medical Screening Exam RME Arrival date/time: 06/28/25 22:04 19-year-old male who admits to using street steroids, reports with complaints of chest pain that radiates to the arm and back x 3 days Chief Complaint: Chest Pain Time Seen by Provider: 06/28/25 22:54 Vital signs: Vital Signs Temperature 98.1 F 06/28/25 22:29 Pulse Rate 82 06/28/25 22:29 Respiratory Rate 20 06/28/25 22:29 Blood Pressure 138/78 H 06/28/25 22:29 Pulse Oximetry (%) 98 06/28/25 22:29 Oxygen Delivery Method Room Air 06/28/25 22:29
[2025-06-28 23:26] VITALS: BP 141/85; PULSE 77; RESP 20; TEMP 36.6; O2SAT 99
--- NOTE | 2025-06-28 23:27 | PD.EDCHEST ---
ED Chest Pain RME/HPI General Chief Complaint: Chest Pain Stated Complaint: CHEST PAIN Time Seen by Provider: 06/28/25 22:54 Arrival date/time: 06/28/25 22:04 RME / HPI RME / HPI narrative: 06/28/25 22:04 19-year-old male who admits to using street steroids, reports with complaints of chest pain that radiates to the arm and back x [address] Sharma?s Main ED Evaluation: 19yo male presents to the ED for a chief complaint of left-sided chest pain that radiates to his back x 3 days. Patient denies any shortness of breath, cough, fever, chills, or any other associated symptoms. Patient was seen by his PCP today and informed that his EKG was abnormal. Patient recently stopped using street steroids one week ago. NKA. Related Data Home Medications ?Medication ?Instructions ?Recorded ?Confirmed No Known Home Medications 12/31/19 12/31/19 Allergies Allergy/AdvReac Type Severity Reaction Status Date / Time No Known Allergies Allergy Verified 06/28/25 22:13 Review of Systems Review of Systems Systems Reviewed: All systems reviewed, normal except as documented Past Medical History Past Medical History CARDIAC: Negative Congestive Heart Failure RESPIRATORY: Negative Chronic Obstructive Pulmonary Disease (COPD) GENITOURINARY: Negative Renal Disease ENDOCRINE: Negative Diabetes Mellitus Type 1 or Diabetes Mellitus Type 2 PSYCHO/SOCIAL: Positive Bipolar Disorder, Depression and Anxiety Social History SMOKING STATUS: Former smoker ED Exam Narrative Physical exam: Generally patient is alert no obvious distress, chest shows no rash no wounds no crepitance no subcu air and is nontender, heart regular rate and rhythm, lungs clear to auscultation equal bilaterally, abdomen soft bowel sounds present nondistended nontender, skin is warm, dry Course Course Course Narrative: CXR is ordered for determining the etiology of chest pain. Quality Measures none Orders Category Date Time Status EKG (ED ONLY) *Do not use* NOW Care 06/28/25 22:15 Completed EKG (ED Only) Stat Exams 06/28/25 22:15 Draft XR chest 2V Stat Exams 06/28/25 22:59 Completed CBC Stat Lab 06/28/25 23:05 Completed CMP [Comprehensive Metabolic Panel] Stat Lab 06/28/25 23:05 Completed Drug Screen,Urine Stat Lab 06/28/25 22:30 Completed Troponin I Stat Lab 06/28/25 23:05 Completed Vital Signs Vital signs: Vital Signs Temperature 98.1 F 06/28/25 22:29 Pulse Rate 82 06/28/25 22:29 Respiratory Rate 20 06/28/25 22:29 Blood Pressure 138/78 H 06/28/25 22:29 Pulse Oximetry (%) 98 06/28/25 22:29 Oxygen Delivery Method Room Air 06/28/25 22:29 Chest Pain MDM Narrative MDM Narrative:: Scribe Attestation: 06/28/25 - Luz Peña am scribing for and in the presence of Dr. Sharma. Interpreted all labs. EKG shows normal sinus rhythm at rate of 77 with nonspecific T wave abnormalities. No ST segment changes. Chest x-ray is clear with normal cardiac silhouette. Troponin is not elevated. Patient will be discharged in stable condition. Patient data External records reviewed:: [facility] previous records (Per chart review, patient was seen here on 05/05/25 for depression.) Clinical information provided by:: patient Social determinants that could affect healthcare access:: mental health Patient has the following chronic illnesses:: bipolar disorder How is presenting disease/condition affected by chronic disease/condition?: uneffected by Evaluation data The following diagnostics were reviewed and interpreted by me:: lab results, radiology exam(s) and EKG tracing(s) Lab and/or radiology exams considered but not ordered:: none Interpretation Summary: [facility] Report Signed Patient: MOIRA MORILLO [facility]. Record#: [id number] Birthdate: 2005 Age/Sex: 19 / M Location: [facility] Attending Dr: Ordering Physician: Raji Arriaga PA-C Date of Service: 06/28/25 Procedure(s): XR chest 2V Accession Number(s): [id number] cc: Nabor Huitron MD; Bhavesh Hall PA-C; Raji Arriaga PA-C~ EXAMINATION: PA lateral chest 2 views TECHNIQUE: 1. Upright PA lateral chest 2 views Date and time: June 28, 2025, 11:00 p.m. INDICATIONS: Chest pain radiating to the arm and back beginning 3 days ago. FINDINGS: Normal heart size Lungs are clear. The osseous structures are intact. IMPRESSION: No active disease Dictated By: Nabor Huitron MD Signed By: <Electronically signed by Nabor Huitron MD in [place]> 06/28/25 1931 Medications / Prescriptions Medications or Prescriptions considered but not ordered:: none Medication administrations:: see above, if any Consultations Consultation(s) initiated? (list below): No Diagnosis Chest Pain Differential Diagnosis: other (See MDM) Most likely diagnosis given after review of the tests above:: see clinical impression below Admission Indicated Admission indicated?: not indicated Admission Request Was there a request for admission?: No Disposition Plan Disposition Plan: Discharge Discharge Attestation Discharge Attestation: The patient and all family members were given an opportunity to ask questions and understood the discharge instructions. Discharge instructions specifically effects, indications for sooner follow up or return to the emergency department, and the expected course of current diagnosis. Patient condition: Stable Discharge Plan Plan Patient Disposition: HOME (Self Care) Prescriptions/Referrals Prescriptions/Med Rec: No Action No Known Home Medications Referrals: Bhavesh Hall PA-C [Primary Care Provider] - In 1 week Problem List Clinical Impression: Chest pain Patient/Caregiver Discharge Instructions Education Materials: ED Chest Pain, Uncertain Cause Additional Instructions: Your heart workup was not abnormal tonight. Follow-up with your doctor for further treatment and evaluation if you continue to have this chest pain. Print Language: Niuean Stand Alone Forms: [employer] Info., Patient Portal Info Letter
[2025-06-28 23:44] LABS: Basophils # (Auto) 0.1 Thou/mm3 (0.0-0.2); Basophils % (Auto) 1 % (0-2.5); Eosinophils # (Auto) 0.2 Thou/mm3 (0.0-0.5); Eosinophils % (Auto) 2 % (0-10); Hematocrit 43.0 % (41.0-53.0); Hemoglobin 14.8 g/dL (13.5-16.0); Immature Granulocytes Auto 0.13 Thou/mm3 (0.00-0.00); Lymphocytes # (Auto) 3.6 Thou/mm3 (1.0-4.8); Lymphocytes % (Auto) 33 % (10-50); Mean Corpuscular HGB Conc 34.4 g/dl (31.0-37.0); Mean Corpuscular Hemoglobin 29.2 pg (25.0-35.0); Mean Corpuscular Volume 85 fL (80-100); Monocytes # (Auto) 1.4 Thou/mm3 (0.0-0.8); Monocytes % (Auto) 13 % (0-12); Neutrophils # (Auto) 5.3 Thou/mm3 (1.8-7.7); Neutrophils % (Auto) 50 % (37-80); Nucleated Red Blood Cell # 0.00 Thou/mm3 (0.00-0.00); Nucleated Red Blood Cell % 0 /100 WBC (0); Platelet Count 257 Thou/mm3 (140-440); RDW Standard Deviation 45.9 fL (35.1-43.9); Red Blood Count 5.07 Miln/mm3 (4.50-5.90); White Blood Count 10.7 Thou/mm3 (3.8-10.6)
[2025-06-29 00:04] LABS: Alanine Aminotransferase 328 U/L (10-49); Albumin, Serum 4.3 gm/dL (3.5-5.0); Albumin/Globulin Ratio 2.4 (1.2-2.2); Alkaline Phosphatase 112 U/L (46-116); Anion Gap 10 (7-16); Aspartate Amino Transferase 143 U/L (0-34); BUN/Creatinine Ratio 13 Ratio (12-20); Bilirubin,Total 0.4 mg/dL (0.3-1.2); Blood Urea Nitrogen 15 mg/dL (9-23); Calcium 8.9 mg/dL (8.3-10.6); Calcium (Corrected) 8.9 mg/dL (8.5-10.1); Carbon Dioxide 26.8 mMol/L (20.0-31.0); Chloride 106 mMol/L (98-107); Creatinine (Component) 1.2 mg/dL (0.6-1.3); Estimated Creatinine Clearance 127.3 mL/min (>60); Globulin 1.8 gm/dL (2.3-3.5); Glucose 70 mg/dL (74-106); Osmolality,Calculated 283 (275-295); Potassium 4.2 mMol/L (3.4-5.1); Sodium 143 mMol/L (136-145); Total Protein 6.1 gm/dL (5.7-8.2); Troponin I < 0.002 ng/mL (0.0-0.045); eGFR > 60 See Note
[2025-06-29 00:10] LABS: Amphetamine/Methamp Scrn,U Negative (Negative); Barbiturate Screen,Urine Negative (Negative); Benzodiazepines Screen,Urine Negative (Negative); Benzoylecgonine Screen, Ur Negative (Negative); Fentanyl Screen,Urine Negative (Negative); Opiate Screen,Urine Negative (Negative); THC Screen,Urine Negative (Negative)
[2025-06-29 00:27] VITALS: BP 142/76; PULSE 74; RESP 16; TEMP 36.7; O2SAT 99
== END 2025-06-29 00:28 | disposition home or self-care (01) ==
PROVIDERS: Physician Assistant; Emergency Provider Emergency Medicine; PCP Physician Assistant
DX: R07.9 Chest pain, unspecified (principal)
CPT/HCPCS: 36415; 71046; 80053; 80307; 84484; 85025; 93005; 99283

== ENCOUNTER → 2025-07-26 | Outpatient (CLI) | payer BC, SELFPAY ==
[2025-07-26 14:23] LABS: Basophils # (Auto) 0.1 Thou/mm3 (0.0-0.2); Basophils % (Auto) 0 % (0-2.5); Eosinophils # (Auto) 0.1 Thou/mm3 (0.0-0.5); Eosinophils % (Auto) 1 % (0-10); Hematocrit 43.4 % (41.0-53.0); Hemoglobin 14.8 g/dL (13.5-16.0); Immature Granulocytes Auto 0.04 Thou/mm3 (0.00-0.00); Lymphocytes # (Auto) 2.3 Thou/mm3 (1.0-4.8); Lymphocytes % (Auto) 17 % (10-50); Mean Corpuscular HGB Conc 34.1 g/dl (31.0-37.0); Mean Corpuscular Hemoglobin 28.8 pg (25.0-35.0); Mean Corpuscular Volume 85 fL (80-100); Monocytes # (Auto) 1.8 Thou/mm3 (0.0-0.8); Monocytes % (Auto) 13 % (0-12); Neutrophils # (Auto) 9.2 Thou/mm3 (1.8-7.7); Neutrophils % (Auto) 68 % (37-80); Nucleated Red Blood Cell # 0.00 Thou/mm3 (0.00-0.00); Nucleated Red Blood Cell % 0 /100 WBC (0); Platelet Count 269 Thou/mm3 (140-440); RDW Standard Deviation 46.2 fL (35.1-43.9); Red Blood Count 5.13 Miln/mm3 (4.50-5.90); White Blood Count 13.4 Thou/mm3 (3.8-10.6)
[2025-07-26 14:35] LABS: Alanine Aminotransferase 38 U/L (10-49); Albumin, Serum 4.5 gm/dL (3.5-5.0); Albumin/Globulin Ratio 2.5 (1.2-2.2); Alkaline Phosphatase 50 U/L (46-116); Anion Gap 10 (7-16); Aspartate Amino Transferase 41 U/L (0-34); BUN/Creatinine Ratio 12 Ratio (12-20); Bilirubin,Total 0.4 mg/dL (0.3-1.2); Blood Urea Nitrogen 16 mg/dL (9-23); Calcium 9.3 mg/dL (8.3-10.6); Calcium (Corrected) 9.3 mg/dL (8.5-10.1); Carbon Dioxide 22.7 mMol/L (20.0-31.0); Cardiac Risk Estimate 9.9 RATIO (4.0-6.7); Chloride 108 mMol/L (98-107); Cholesterol 188 mg/dL (132-200); Creatinine (Component) 1.3 mg/dL (0.6-1.3); Globulin 1.8 gm/dL (2.3-3.5); Glucose 89 mg/dL (74-106); HDL Cholesterol 19 mg/dL (40-60); LDL Cholesterol,Calculated 155 mg/dL (0-130); Osmolality,Calculated 281 (275-295); Potassium 4.5 mMol/L (3.4-5.1); Sodium 141 mMol/L (136-145); Total Protein 6.3 gm/dL (5.7-8.2); Triglycerides 71 mg/dL (30-150); eGFR > 60 See Note
[2025-07-31 06:55] LABS: Direct LDL* 171 mg/dL (<100)
== END | disposition home or self-care (01) ==
LOC: COPL 12:46
PROVIDERS: PCP Physician Assistant; Referring Provider Nurse Practitioner Family; Visit Provider Nurse Practitioner Family
DX: L70.0 Acne vulgaris (principal)
CPT/HCPCS: 36415; 80053; 80061; 83721; 85025

== ENCOUNTER → 2025-08-08 | Outpatient (CLI) | payer BC, SELFPAY ==
--- NOTE | 2025-08-08 10:30 | XR_ITS ---
Examination: CT maxillofacial, without intravenous contrast. 2-D sagittal reconstructions. 3-D reconstructions. Date and time of exam: August 08, 2025, 1107 hours INDICATIONS: Congestion sinus pressure and pain 6 months CTDI: vol (mGy): 12 DLP: (mGycm): 260 Technique: Multiple axial images of maxillofacial region, 3.0 mm slice thickness. 2-D sagittal and coronal reconstructions. 3-D reconstructions. Low dose protocols were performed. One or more of the following dose reduction techniques were used; automated exposure control, adjustment of the mA and/or KV according to patient size, use of iterative reconstruction technique. Findings: Mild mucosal thickening ethmoid air cells Pneumatization middle turbinates Deviation nasal septum to the right 10 mm Mucosal thickening right maxillary antrum measuring up to 4 mm Moderate hypertrophy inferior nasal turbinates Optic globes exhibits symmetry No nasopharyngeal or oropharyngeal mass Symmetrical mastoid aeration IMPRESSION: Mild mucosal thickening ethmoid air cells Deviation nasal septum to the right 10 mm Mucosal thickening right maxillary antrum measuring up to 4 mm.
[2025-08-08 12:27] LABS: Basophils # (Auto) 0.1 Thou/mm3 (0.0-0.2); Basophils % (Auto) 0 % (0-2.5); Eosinophils # (Auto) 0.1 Thou/mm3 (0.0-0.5); Eosinophils % (Auto) 0 % (0-10); Hematocrit 48.6 % (41.0-53.0); Hemoglobin 15.8 g/dL (13.5-16.0); Immature Granulocytes Auto 0.13 Thou/mm3 (0.00-0.00); Lymphocytes # (Auto) 2.2 Thou/mm3 (1.0-4.8); Lymphocytes % (Auto) 14 % (10-50); Mean Corpuscular HGB Conc 32.5 g/dl (31.0-37.0); Mean Corpuscular Hemoglobin 28.6 pg (25.0-35.0); Mean Corpuscular Volume 88 fL (80-100); Monocytes # (Auto) 1.3 Thou/mm3 (0.0-0.8); Monocytes % (Auto) 8 % (0-12); Neutrophils # (Auto) 12.4 Thou/mm3 (1.8-7.7); Neutrophils % (Auto) 77 % (37-80); Nucleated Red Blood Cell # 0.00 Thou/mm3 (0.00-0.00); Nucleated Red Blood Cell % 0 /100 WBC (0); Platelet Count 459 Thou/mm3 (140-440); RDW Standard Deviation 48.0 fL (35.1-43.9); Red Blood Count 5.52 Miln/mm3 (4.50-5.90); White Blood Count 16.2 Thou/mm3 (3.8-10.6)
[2025-08-08 13:27] LABS: Alanine Aminotransferase 47 U/L (10-49); Albumin, Serum 5.2 gm/dL (3.5-5.0); Albumin/Globulin Ratio 1.9 (1.2-2.2); Alkaline Phosphatase 64 U/L (46-116); Anion Gap 11 (7-16); Aspartate Amino Transferase 61 U/L (0-34); BUN/Creatinine Ratio 12 Ratio (12-20); Bilirubin,Total 0.4 mg/dL (0.3-1.2); Blood Urea Nitrogen 14 mg/dL (9-23); Calcium 10.5 mg/dL (8.3-10.6); Calcium (Corrected) 10.5 mg/dL (8.5-10.1); Carbon Dioxide 26.0 mMol/L (20.0-31.0); Chloride 105 mMol/L (98-107); Creatinine (Component) 1.2 mg/dL (0.6-1.3); Globulin 2.7 gm/dL (2.3-3.5); Glucose 69 mg/dL (74-106); Osmolality,Calculated 281 (275-295); Potassium 5.2 mMol/L (3.4-5.1); Sodium 142 mMol/L (136-145); Total Protein 7.9 gm/dL (5.7-8.2); eGFR > 60 See Note
[2025-08-14 06:38] LABS: Sex Hormone Binding Globulin* 5 nmol/L (10-50); Testosterone, Free,Dialysis 595.0 pg/mL (35.0-155.0); Testosterone, Total, Dialysis 1761 ng/dL (250-1100)
== END | disposition home or self-care (01) ==
LOC: CCTX 10:49 → COPL 11:27
PROVIDERS: PCP Psychiatry & Neurology Child & Adolescent Psychiatry; Referring Provider Physician Assistant; Visit Provider Radiology Diagnostic Radiology
DX: J34.2 Deviated nasal septum (principal); J32.0 Chronic maxillary sinusitis; F33.41 Major depressive disorder, recurrent, in partial remission; F19.20 Other psychoactive substance dependence, uncomplicated
CPT/HCPCS: 36415; 70486; 80053; 84270; 84402; 84403; 85025